=== PATIENT | female | born 1990 | race Caucasian/White ===

== ENCOUNTER 2019-08-22 18:08 | Emergency (ER) | payer OTHER ==
[~2019-08-22] VITALS: Ht 157.5 cm; Wt 104.3 kg
[2019-08-22 18:13] VITALS: Ht 157.5 cm; Wt 104.3 kg
[2019-08-22 18:56] LABS: microscopic required? NO
[2019-08-22 19:06] LABS: BASOPHIL % 0.5 % (0-2); PLATELET COUNT 362 x10^3mcL (130-400); RED CELL DISTRIBUTION WIDTH 13.4 % (11.5-14.5)
[2019-08-22 19:07] LABS: urine erythrocyte NEGATIVE (NEGATIVE)
[2019-08-22 19:10] LABS: CHLORIDE SERUM 100 mmol/L (98-107); CREATININE SERUM 0.8 mg/dL (0.6-1.0); GFR1 > 60 mL/min; GLUCOSE SERUM 129 mg/dL (74-106); POTASSIUM SERUM 3.3 mmol/L (3.5-5.1); SODIUM SERUM 137 mmol/L (136-145)
[2019-08-22 19:16] LABS: AMPHETAMINE QUAL UR NONE DETECTED (See below)
[2019-08-22 19:22] LABS: ALBUMIN 3.9 g/dL (3.4-5.0); ALKALINE PHOSPHATASE 100 U/L (46-116); ALT/SGPT 39 U/L (14-59); AST/SGOT 20 U/L (15-37); BILIRUBIN TOTAL 0.2 mg/dL (0.20-1.00); CHOLESTEROL 168 mg/dL (<200); HDL CHOLESTEROL 38 mg/dL (40-60); LIPASE 115 IU/L (73-393); MAGNESIUM 1.6 mg/dL (1.8-2.4); T4(THYROXINE) 8.5 ug/dL (4.7-13.3)
[2019-08-22 19:23] LABS: TOTAL PROTEIN, SERUM 8.4 g/dL (6.4-8.2)
[2019-08-23 00:45] VITALS: BP 118/73
== END 2019-08-23 00:45 | disposition home or self-care (01) ==
LOC: ED 18:08
PROVIDERS: Emergency Medicine
DX: R42 Dizziness and giddiness (principal); E86.9 Volume depletion, unspecified; R82.4 Acetonuria; E87.6 Hypokalemia; E66.9 Obesity, unspecified; Z68.41 Body mass index [BMI] 40.0-44.9, adult
CPT/HCPCS: 82962; J2060; J7030; Q0092